=== PATIENT | male | born 1995 | race Caucasian/White ===

== ENCOUNTER 2016-09-10 10:24 | Emergency (ER) | payer SELFPAY ==
[2016-09-10 10:37] VITALS: BP 126/70; PULSE 87; RESP 18; TEMP 98; O2SAT 100
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
== END 2016-09-10 12:04 | disposition home or self-care (01) ==
LOC: H.ER 10:24
DX: S73.102A Unspecified sprain of left hip, initial encounter (principal); S70.02XA Contusion of left hip, initial encounter; V09.3XXA Pedestrian injured in unspecified traffic accident, initial encounter; Y93.01 Activity, walking, marching and hiking